=== PATIENT | female | born 1985 ===

== ENCOUNTER 2017-02-20 11:22 | Emergency (ER) | payer MEDICAID, OTHER ==
--- NOTE | 2017-02-20 11:54 | C.PDOC ---
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 - Scribe Statement The provider has reviewed the documentation as recorded by the Scribe Jocy Walton All medical record entries made by the Scribe were at my direction and personally dictated by me. I have reviewed the chart and agree that the record accurately reflects my personal performance of the history, physical exam, medical decision making, and the department course for this patient. I have also personally directed, reviewed, and agree with the discharge instructions and disposition.
--- NOTE | 2017-02-20 11:55 | C.PDOC ---
History Of Present Illness 31 year old patient presents to the ED complaining of RLQ pain on and off for the past week. Patient also complains of vomiting. She notes her last menstrual cycle was a few days ago. The abdominal pain is radiating from her back. The pain is exacerbated by walking. Patient denies being , any PMHx, allergies, fever, shortness of breath, dysuria, incontinence, numbness, weakness , vomiting, or diarrhea. PMD: Dr. Lam Time Seen by Provider: 02/20/17 11:49 Chief Complaint (Nursing): Abdominal Pain History Per: Patient History/Exam Limitations: no limitations Onset/Duration Of Symptoms: Intermittent Episodes (1 week) Current Symptoms Are (Timing): Still Present Context: Other Severity: Mild Pain Scale Rating Of: 3 Location Of Pain/Discomfort: RLQ Radiation Of Pain To:: Back Quality Of Discomfort: "Pain" Associated Symptoms: Nausea, Back Pain Exacerbating Factors: None Alleviating Factors: None Last Bowel Movement: Today Recent travel outside of the [place]: No Abnormal Vaginal Bleeding: No Last Menstral Period: few days ago Past Medical History Reviewed: Historical Data, Nursing Documentation, Vital Signs Vital Signs: Last Vital Signs Temp 98.1 F 02/20/17 14:42 Pulse 82 02/20/17 14:42 Resp 20 02/20/17 14:42 BP 111/71 02/20/17 14:42 Pulse Ox 95 02/20/17 14:42 - [facility] Procedures MONITORING NOS (09/16/13) INFLUENZA VACCINATION (10/09/13) MANUAL ASSIST DELIV NEC (10/09/13) REPAIR OB LACERATION NEC (10/09/13) Family History: States: Diabetes - Social History Hx Tobacco Use: No Hx Alcohol Use: No Hx Substance Use: No - Immunization History Hx Tetanus Toxoid Vaccination: No Hx Influenza Vaccination: No Hx Pneumococcal Vaccination: No Review Of Systems Except As Marked, All Systems Reviewed And Found Negative. Constitutional: Negative for: Fever Respiratory: Negative for: Shortness of Breath Gastrointestinal: Positive for: Nausea, Abdominal Pain. Negative for: Vomiting , Diarrhea Genitourinary: Negative for: Dysuria, Incontinence Musculoskeletal: Positive for: Back Pain Neurological: Negative for: Weakness, Numbness Physical Exam - Physical Exam Appears: Non-toxic, No Acute Distress Skin: Warm, Dry Head: Atraumatic, Normacephalic Neck: Normal ROM, Supple Chest: Symmetrical Cardiovascular: Rhythm Regular Respiratory: Normal Breath Sounds, No Rales, No Rhonchi, No Wheezing Gastrointestinal/Abdominal: Soft, Tenderness (RLQ tenderness), No Guarding, No Rebound Back: Normal Inspection, No CVA Tenderness Extremity: Normal ROM Neurological/Psych: Oriented x3 Gait: Steady ED Course And Treatment - Laboratory Results Result Diagrams: 02/20/17 12:20 02/20/17 12:20 Lab Interpretation: Normal Urine POC: Negative O2 Sat by Pulse Oximetry: 100 (room air) Pulse Ox Interpretation: Normal - CT Scan/US Abdomen/Pelvis CT Other Rad Studies (CT/US): Read By Radiologist (Pavan Abebe), Radiology Report Reviewed CT/US Interpretation: PROCEDURE: CT Abdomen and Pelvis without intravenous contrast. HISTORY: Pain. COMPARISON: Comparison is made to the previous study dated 07/01/2014. TECHNIQUE: Axial and reformatted coronal and sagittal CT images of the abdomen and pelvis were obtained without IV or oral contrast administration.. Contrast Dose: 0. Radiation dose: Total exam DLP = 429.7 mGy -cm. This CT exam was performed using one or more of the following dose reduction techniques: Automated exposure control, adjustment of the mA and/or kV according to patient size, and/or use of iterative reconstruction technique. FINDINGS: LOWER THORAX: Unremarkable. LIVER: Hepatomegaly with findings again suggestive of moderate hepatic steatosis. GALLBLADDER AND BILE DUCTS: No CT evidence of cholecystitis. PANCREAS: Unremarkable. No gross lesion or ductal dilatation. SPLEEN: Unremarkable. ADRENALS: Unremarkable. No mass. KIDNEYS AND URETERS: Unremarkable. No hydronephrosis. No solid mass. VASCULATURE: Unremarkable. No aortic aneurysm. BOWEL: Unremarkable. No obstruction. No gross mural thickening. APPENDIX: Unremarkable. Normal appendix. PERITONEUM: Unremarkable. No free fluid. No free air. LYMPH NODES: Unremarkable. No enlarged lymph nodes. BLADDER: Unremarkable. REPRODUCTIVE : The uterus is slightly enlarged. BONES: No acute fracture. OTHER FINDINGS : None. IMPRESSION: No CT evidence of acute pathology in the abdomen and pelvis. Mild hepatomegaly with moderate hepatic steatosis again noted. No evidence of cholecystitis pancreatitis or appendicitis. Slightly enlarged uterus. Progress Note: Plan: Abdomen/Pelvis CT w/o contrast, Labs, IV fluids, Zofran. On re-evaluation abdomen soft non-tender Reassessment Condition: Improved Disposition Counseled Patient/Family Regarding: Studies Performed, Diagnosis, Need For Followup, Rx Given - Disposition Referrals: [facility] [Outside] [facility] [Outside] Disposition: HOME/ ROUTINE Disposition Time: 14:10 Condition: STABLE Additional Instructions: Follow up at clinic or PMD for further evaluation Prescriptions: Naproxen [Naprosyn] 1 tab PO BID PRN #25 tab PRN Reason: Pain Instructions: Abdominal Pain (ED) - POA Present On Arrival: None - Clinical Impression Clinical Impression: Nausea, Abdominal pain - 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 - Scribe Statement The provider has reviewed the documentation as recorded by the Scribe Jocy Walton All medical record entries made by the Scribe were at my direction and personally dictated by me. I have reviewed the chart and agree that the record accurately reflects my personal performance of the history, physical exam, medical decision making, and the department course for this patient. I have also personally directed, reviewed, and agree with the discharge instructions and disposition.
[2017-02-20] MEDS ORDERED: Sodium Chloride 0.9% 1,000 ML IV ONE (12:02)
[2017-02-20] MEDS ORDERED: Sodium Chloride 0.9% 1,000 ML ONE (12:25)
[2017-02-20 12:29] LABS: BASO # 0.1 K/uL (0.0-0.2); BASO % 0.9 % (0.0-2.0); EOS # 0.2 K/uL (0.0-0.7); EOS % 2.7 % (0.0-4.0); HEMATOCRIT 37.7 % (34.0-47.0); LYMPH # 2.3 K/uL (1.0-4.3); LYMPH % 29.1 % (20.0-40.0); MEAN CELL VOLUME 82.2 fL (81.0-99.0); MEAN CORPUSCULAR HEMOGLOBIN 26.9 pg (27.0-31.0); MEAN CORPUSCULAR HGB CONC 32.7 g/dL (33.0-37.0); MEAN PLATELET VOLUME 9.3 fL (7.2-11.7); MONO # 0.4 K/uL (0.0-0.8); MONO % 4.9 % (0.0-10.0); RED CELL DISTRIBUTION WIDTH 13.7 % (11.5-14.5)
[2017-02-20 12:30] LABS: WHITE BLOOD COUNT 7.9 K/uL (4.8-10.8)
[2017-02-20 12:55] LABS: RBC URINE 2 /hpf (0-3); WBC URINE 10 /hpf (0-5)
[2017-02-20 13:04] LABS: URINE BILIRUBIN NEGATIVE (NEGATIVE); URINE BLOOD NEGATIVE (NEGATIVE); URINE COLOR Yellow (YELLOW); URINE GLUCOSE (UA) NORMAL (Normal); URINE KETONE NEGATIVE (NEGATIVE); URINE LEUKOCYTE ESTERASE 1+ Leu/uL (Negative); URINE PROTEIN NEGATIVE (NEGATIVE); URINE UROBILINOGEN NORMAL mg/dL (0.2-1.0)
--- NOTE | 2017-02-20 14:01 | CT ---
PROCEDURE: CT Abdomen and Pelvis without intravenous contrast HISTORY: Pain COMPARISON: Comparison is made to the previous study dated 07/01/2014 TECHNIQUE: Axial and reformatted coronal and sagittal CT images of the abdomen and pelvis were obtained without IV or oral contrast administration.. Contrast Dose: 0 Radiation dose: Total exam DLP = 429.7 mGy-cm. This CT exam was performed using one or more of the following dose reduction techniques: Automated exposure control, adjustment of the mA and/or kV according to patient size, and/or use of iterative reconstruction technique. FINDINGS: LOWER THORAX: Unremarkable. LIVER: Hepatomegaly with findings again suggestive of moderate hepatic steatosis. GALLBLADDER AND BILE DUCTS: No CT evidence of cholecystitis PANCREAS: Unremarkable. No gross lesion or ductal dilatation. SPLEEN: Unremarkable. ADRENALS: Unremarkable. No mass. KIDNEYS AND URETERS: Unremarkable. No hydronephrosis. No solid mass. VASCULATURE: Unremarkable. No aortic aneurysm. BOWEL: Unremarkable. No obstruction. No gross mural thickening. APPENDIX: Unremarkable. Normal appendix. PERITONEUM: Unremarkable. No free fluid. No free air. LYMPH NODES: Unremarkable. No enlarged lymph nodes. BLADDER: Unremarkable. REPRODUCTIVE: The uterus is slightly enlarged. BONES: No acute fracture. OTHER FINDINGS: None. IMPRESSION: No CT evidence of acute pathology in the abdomen and pelvis. Mild hepatomegaly with moderate hepatic steatosis again noted. No evidence of cholecystitis pancreatitis or appendicitis. Slightly enlarged uterus.
[2017-02-20 14:18] LABS: CHLORIDE 99 mmol/L (98-107); POTASSIUM 3.9 mmol/L (3.6-5.2); SODIUM 137 mmol/L (132-148)
[2017-02-20 14:20] LABS: ALB/GLOB RATIO 1.3 (1.0-2.1); ALKALINE PHOSPHATASE 54 U/L (38-126); AST/SGOT 57 U/L (14-36); BILIRUBIN,TOTAL 0.5 mg/dL (0.2-1.3); BLOOD UREA NITROGEN 11 mg/dL (7-17); CARBON DIOXIDE 28 mmol/L (22-30); GFR AFRICAN-AMERICAN > 60; TOTAL PROTEIN 7.3 g/dL (6.3-8.3)
[2017-02-20 14:21] LABS: ALT/SGPT 63 U/L (9-52); GLUCOSE,RANDOM 96 mg/dL (65-105)
[2017-02-20 14:43] VITALS: BP 111/71; PULSE 82; RESP 20; TEMP 98.1
[2017-02-20 16:26] VITALS: O2SAT 100
== END 2017-02-20 14:48 | disposition home or self-care (01) ==
LOC: C.ER 11:22
DX: R11.0 Nausea (principal); R10.31 Right lower quadrant pain
CPT/HCPCS: 74176; 80053; 81001; 83690; 84703; 85025; 96361; 96374; 99284; J2405; J7040

== ENCOUNTER 2017-05-21 12:20 | Emergency (ER) | payer MEDICAID ==
[2017-05-21 12:33] VITALS: RESP 18; TEMP 98.8; O2SAT 100
--- NOTE | 2017-05-21 13:29 | C.PDOC ---
History Of Present Illness 32 yo female c/o vaginal bleeding for 2 weeks. Notes her menstruation is usually irregular. Today she is "spotting". (+) pelvic pain. (+) nausea (+) H/o similar symptoms. (-) dysuria (-) urinary frequency (-) back pain (-) fever (-) vomiting (-) dizziness or lightheaded (-) vaginal discharge. PT notes that she has taken mulitple tests which were negative. Time Seen by Provider: 05/21/17 12:59 Chief Complaint (Nursing): Female Genitourinary History Per: Patient History/Exam Limitations: no limitations Onset/Duration Of Symptoms: Days Current Symptoms Are (Timing): Still Present Quality Of Discomfort: "Pain" Associated Symptoms: Nausea. denies: Fever, Chills, Vomiting, Diarrhea, Back Pain Recent travel outside of the [place]: No Abnormal Vaginal Bleeding: Yes Past Medical History Reviewed: Historical Data, Nursing Documentation, Vital Signs Vital Signs: Last Vital Signs Temp 98.8 F 05/21/17 12:28 Pulse 72 05/21/17 15:06 Resp 18 05/21/17 15:06 BP 124/75 05/21/17 15:06 Pulse Ox 100 05/21/17 15:07 - [facility] Procedures MONITORING NOS (09/16/13) INFLUENZA VACCINATION (10/09/13) MANUAL ASSIST DELIV NEC (10/09/13) REPAIR OB LACERATION NEC (10/09/13) Family History: States: Diabetes - Social History Hx Tobacco Use: No Hx Alcohol Use: No Hx Substance Use: No - Immunization History Hx Tetanus Toxoid Vaccination: No Hx Influenza Vaccination: No Hx Pneumococcal Vaccination: No Review Of Systems Except As Marked, All Systems Reviewed And Found Negative. Constitutional: Positive for: Fever Gastrointestinal: Positive for: Nausea Genitourinary: Positive for: Vaginal Bleeding, Pelvic Pain Physical Exam - Physical Exam Appears: Well, Non-toxic, No Acute Distress Skin: Warm, Dry Head: Atraumatic, Normacephalic Eye(s): bilateral: Normal Inspection, EOMI Nose: Normal Oral Mucosa: Moist Neck: Normal ROM, Supple Chest: Symmetrical, No Deformity Cardiovascular: Rhythm Regular Respiratory: Normal Breath Sounds, No Rhonchi, No Wheezing Gastrointestinal/Abdominal: Soft, Tenderness ((+) suprapubic tendenress) Back: No CVA Tenderness, No Vertebral Tenderness Extremity: Bilateral: Atraumatic Neurological/Psych: Oriented x3, Normal Speech, Normal Cognition ED Course And Treatment O2 Sat by Pulse Oximetry: 100 (room air) - CT Scan/US Transvaginal pelvic ultrasound. Other Rad Studies (CT/US): Interpreted By Me, Read By Radiologist, Radiology Report Reviewed CT/US Interpretation: FINDINGS: UTERUS: Measures 8.7 x 4.1 x 4.8 cm. Anteverted. ENDOMETRIUM: Measures 7 mm in diameter. CERVIX: No cervical abnormality identified. RIGHT OVARY: Measures 3.7 x 2.2 x 3.5 cm. Blood flow is demonstrated. 1.8 x 1.5 x 2.0 cm septated cyst. LEFT OVARY: Measures 2.5 x 1.7 x 2.2 cm. Blood flow is demonstrated. FREE FLUID: Small pelvic free fluid. OTHER FINDINGS: None. IMPRESSION: 1.8 cm right ovarian septated cyst. Small pelvic free fluid. Progress Note: Labs and US were ordered. Previous records reviewed, pt has h/o dysmenhorrea. Pt notes similar symptoms. Vitals wNL. No tachycardia. No dizziness or lightheaded. PT notes minimally to no bleeding now. UA WNL. Pt was instructed to follow up with [facility]MI[facility] in 1-2 days. Disposition - Disposition Disposition: HOME/ ROUTINE Disposition Time: 14:47 Condition: STABLE Additional Instructions: Follow up with primary medical doctor in 1-3 days without fail for further evaluation. Take medications as prescribed. Return to the emergency department at any time if symptoms persist or worsen. Prescriptions: Naproxen [Naprosyn] 1 tab PO BID PRN #20 tab PRN Reason: Pain Instructions: Dysmenorrhea (ED) Forms: [employer] (Norwegian) - Clinical Impression Clinical Impression: Menorrhagia with irregular cycle
[2017-05-21 14:03] LABS: RBC URINE 1 /hpf (0-3); URINE BILIRUBIN NEGATIVE (NEGATIVE); URINE BLOOD NEGATIVE (NEGATIVE); URINE COLOR Yellow (YELLOW); URINE GLUCOSE (UA) NORMAL (Normal); URINE KETONE NEGATIVE (NEGATIVE); URINE LEUKOCYTE ESTERASE NEG Leu/uL (Negative); URINE PROTEIN NEGATIVE (NEGATIVE); URINE UROBILINOGEN NORMAL mg/dL (0.2-1.0); WBC URINE 1 /hpf (0-5)
--- NOTE | 2017-05-21 14:30 | US ---
HISTORY: pain COMPARISON: Transvaginal pelvic ultrasound performed 08/11/14. TECHNIQUE: Transvaginal pelvic ultrasound. FINDINGS: UTERUS: Measures 8.7 x 4.1 x 4.8 cm. Anteverted. ENDOMETRIUM: Measures 7 mm in diameter. CERVIX: No cervical abnormality identified. RIGHT OVARY: Measures 3.7 x 2.2 x 3.5 cm. Blood flow is demonstrated. 1.8 x 1.5 x 2.0 cm septated cyst. LEFT OVARY: Measures 2.5 x 1.7 x 2.2 cm. Blood flow is demonstrated. FREE FLUID: Small pelvic free fluid. OTHER FINDINGS: None. IMPRESSION: 1.8 cm right ovarian septated cyst. Small pelvic free fluid.
[2017-05-21 15:07] VITALS: BP 124/75; PULSE 72
== END 2017-05-21 15:07 | disposition home or self-care (01) ==
LOC: C.ER 12:20
DX: N92.0 Excessive and frequent menstruation with regular cycle (principal)

== ENCOUNTER 2018-05-27 13:17 | Emergency (ER) | payer MEDICAID ==
[2018-05-27 13:25] VITALS: O2SAT 100
[2018-05-27] MEDS ORDERED: Sodium Chloride 0.9% 1,000 ML IV ONE (13:55)
[2018-05-27] MEDS ORDERED: Sodium Chloride 0.9% 1,000 ML ONE (14:21)
[2018-05-27 14:22] LABS: BASO # 0.1 K/uL (0.0-0.2); BASO % 0.7 % (0.0-2.0); EOS # 0.3 K/uL (0.0-0.7); EOS % 3.2 % (0.0-4.0); HEMOGLOBIN 12.2 g/dL (11.0-16.0); LYMPH # 2.2 K/uL (1.0-4.3); LYMPH % 24.9 % (20.0-40.0); MEAN CELL VOLUME 80.3 fL (81.0-99.0); MEAN CORPUSCULAR HEMOGLOBIN 27.3 pg (27.0-31.0); MEAN CORPUSCULAR HGB CONC 34.1 g/dL (33.0-37.0); MEAN PLATELET VOLUME 8.9 fL (7.2-11.7); MONO # 0.4 K/uL (0.0-0.8); MONO % 4.8 % (0.0-10.0); NEUT # 5.7 K/uL (1.8-7.0); NEUT % 66.4 % (50.0-75.0); RBC 4.47 Mil/uL (3.80-5.20); WHITE BLOOD COUNT 8.6 K/uL (4.8-10.8)
[2018-05-27 14:28] LABS: HCG,QUALITATIVE URINE POSITIVE (NEGATIVE)
[2018-05-27 14:35] LABS: ALB/GLOB RATIO 1.2 (1.0-2.1); ALBUMIN 4.3 g/dL (3.5-5.0); ALT/SGPT 167 U/L (9-52); AST/SGOT 95 U/L (14-36); BLOOD UREA NITROGEN 8 mg/dL (7-17); CALCIUM 9.8 mg/dl (8.6-10.4); GFR NON-AFRICAN AMERICAN > 60
[2018-05-27 14:44] LABS: SQUAMOUS EPITHIAL 3 /hpf (0-5); URINE BACTERIA RARE (<OCC); URINE BILIRUBIN NEGATIVE (NEGATIVE); URINE BLOOD NEGATIVE (NEGATIVE); URINE CLARITY Clear (Clear); URINE COLOR Yellow (YELLOW); URINE GLUCOSE (UA) NORMAL (Normal); URINE LEUKOCYTE ESTERASE 1+ Leu/uL (Negative); URINE PROTEIN NEGATIVE (NEGATIVE); URINE UROBILINOGEN NORMAL mg/dL (0.2-1.0)
--- NOTE | 2018-05-27 14:45 | C.PDOC ---
History Of Present Illness 33 year old female A2 who is currently 14-16 weeks presents to the emergency department with complaints of have left lower quadrant abdominal cramp over the last two days. Patient states that her back pain radiates to her left lower back. She denies vaginal bleeding, fever, or trauma. Time Seen by Provider: 05/27/18 13:39 Chief Complaint (Nursing): Female Genitourinary History Per: Patient History/Exam Limitations: no limitations Onset/Duration Of Symptoms: Days (2) Current Symptoms Are (Timing): Still Present Location Of Pain/Discomfort: LLQ Quality Of Discomfort: Cramping, "Pain" Associated Symptoms: denies: Fever, Other (vaginal bleeding) Past Medical History Reviewed: Historical Data, Nursing Documentation, Vital Signs Vital Signs: Last Vital Signs Temp 98.0 F 05/27/18 17:01 Pulse 87 05/27/18 17:01 Resp 18 05/27/18 17:01 BP 112/78 05/27/18 17:01 Pulse Ox 100 05/27/18 17:01 - Medical History PMH: Anemia Surgical History: No Surg Hx - [facility] Procedures MONITORING NOS (09/16/13) INFLUENZA VACCINATION (10/09/13) MANUAL ASSIST DELIV NEC (10/09/13) REPAIR OB LACERATION NEC (10/09/13) Family History: States: Diabetes - Social History Hx Tobacco Use: No Hx Alcohol Use: No Hx Substance Use: No - Immunization History Hx Tetanus Toxoid Vaccination: No Hx Influenza Vaccination: No Hx Pneumococcal Vaccination: No Review Of Systems Except As Marked, All Systems Reviewed And Found Negative. Constitutional: Negative for: Fever Gastrointestinal: Positive for: Abdominal Pain (LLQ cramp) Genitourinary: Negative for: Vaginal Bleeding Physical Exam - Physical Exam Appears: Non-toxic, No Acute Distress Skin: Warm, Dry, No Rash Head: Atraumatic, Normacephalic Eye(s): bilateral: Normal Inspection, PERRL, EOMI Oral Mucosa: Moist Neck: Normal, Normal ROM, Supple Chest: Symmetrical, No Tenderness Cardiovascular: Rhythm Regular, No Friction Rub, No Murmur Respiratory: Normal Breath Sounds, No Rales, No Rhonchi, No Wheezing Gastrointestinal/Abdominal: Normal Exam, Soft, No Tenderness, No Guarding, No Rebound Back: Normal Inspection, No CVA Tenderness Extremity: No Swelling Neurological/Psych: Oriented x3, Normal Speech, Normal Cognition, Normal Motor Gait: Steady ED Course And Treatment - Laboratory Results Result Diagrams: 05/27/18 14:18 05/27/18 14:18 O2 Sat by Pulse Oximetry: 100 (RA) Pulse Ox Interpretation: Normal Progress Note: Plan: Blood Bank Type and Screen. Beta-HCG. CMP. CBC. NaCl IV Fluids. Urine Culture. HCG Qualitative. Urinalysis. US 1st Trimester Medical Decision Making Medical Decision Making: On re-exam, the patient reports improvement of symptoms. Lungs are CTA, heart is RRR, abdomen is soft, non-tender and tolerating PO well. Ambulatory in the ED with steady gait. Follow up with the medical doctor within 1-2 days. Return if worsened. Disposition - Disposition Referrals: [facility] [Outside] [facility] [Outside] Disposition: HOME/ ROUTINE Disposition Time: 16:30 Condition: GOOD Additional Instructions: Follow up with your OBGYN tomorrow as scheduled. Return to the ED as soon as possible if worsened such as vaginal bleeding or worsened pain. 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 - Scribe Statement The provider has reviewed the documentation as recorded by the Scribe (Eloy Whitehead) All medical record entries made by the Scribe were at my direction and personally dictated by me. I have reviewed the chart and agree that the record accurately reflects my personal performance of the history, physical exam, medical decision making, and the department course for this patient. I have also personally directed, reviewed, and agree with the discharge instructions and disposition.
--- NOTE | 2018-05-27 15:51 | US ---
Pelvic ultrasound History: . Pain. Comparison: None available. Technique: Real-time sonography was performed through the pelvis utilizing transabdominal technique. Findings: Uterus: 11.8 x 6.3 x 8.2 centimeters. Heterogeneous echotexture. Anteverted. Cervix measures 3.3 centimeters. Intrauterine with intrauterine gestational sac measuring 3.55 centimeters corresponding to a gestational age of 8 weeks and 5 days. Yolk sac measures 2.7 millimeters. [place]-rump length measures 2.1 centimeters corresponding to a gestational age of 8 weeks 5 days. heart rate of 154 beats per minute. No free fluid in the pelvic cul-de-sac. Right ovary: 3.2 x 1.5 x 3.4 centimeters. Normal flow. Left ovary: 2.9 x 2.6 x 3.3 centimeters. Normal flow. Impression: Intrauterine corresponding to a gestational age of approximately 8 weeks and 5 days by crown-rump length of 2.07 centimeters. heart rate of 154 beats per minute. Limited 1st trimester ultrasound for viability purposes only. Continued interval followup with serial ultrasound, serial HCG levels, and gynecological consultation would be helpful if clinically indicated.
[2018-05-27 17:02] VITALS: BP 112/78; PULSE 87; RESP 18; TEMP 98
== END 2018-05-27 17:03 | disposition home or self-care (01) ==
LOC: C.ER 13:17
DX: O26.891 Other specified pregnancy related conditions, first trimester (principal); R10.32 Left lower quadrant pain; Z3A.08 8 weeks gestation of pregnancy
CPT/HCPCS: 76801; 80053; 81001; 84702; 84703; 85025; 86850; 86900; 99284; J7030

== ENCOUNTER 2018-08-27 09:55 | Emergency (ER) | payer MEDICAID ==
[2018-08-27 11:49] LABS: SQUAMOUS EPITHIAL 10 /hpf (0-5); URINE AMORPHOUS SEDIMENT RARE /ul (<OCC); URINE BACTERIA OCC (<OCC); URINE BILIRUBIN NEGATIVE (NEGATIVE); URINE BLOOD NEGATIVE (NEGATIVE); URINE CLARITY Hazy (Clear); URINE COLOR Amber (YELLOW); URINE GLUCOSE (UA) NORMAL (Normal); URINE LEUKOCYTE ESTERASE 3+ Leu/uL (Negative); URINE PROTEIN 1+ mg/dL (NEGATIVE); URINE UROBILINOGEN NORMAL mg/dL (0.2-1.0)
--- NOTE | 2018-08-27 14:25 | US ---
Indication: , scant care Comparison: 1st trimester ultrasound performed 05/27/18 Technique: Real-time ultrasound was performed through the pelvis. Findings: There is a single living fetus in cephalic presentation. Amniotic fluid volume is within normal limits. The placenta is not previa. There are no adnexal masses or cysts evident. Cervix length measures approximately 3.3 cm. The study was performed for emergent evaluation, and the whole anatomic survey of the fetus was not performed. This should be performed on an outpatient elective basis as clinically warranted. On the image provided of the kidneys, there is evidence of a midline rounded echogenic focus with posterior acoustic shadowing noted of unclear significance. Limited visualized anatomy appears otherwise grossly unremarkable. Measurements and calculations: Fetus has a composite sonographic age of 21 weeks 6 days. This calculation is based on the biparietal diameter, head circumference, abdominal circumference, and femur length. Estimated heart rate 154.4 beats per min. Estimated weight 457.7 g. Impression: Single living fetus with a composite sonographic age of 21 weeks 6 days. Estimated heart rate 154.4 beats per min. On the image provided of the kidneys, there is evidence of a midline rounded echogenic focus with posterior acoustic shadowing of unclear significance. Additional images were requested however the patient has signed out of the hospital against medical advice. Recommend further sonography and dedicated whole anatomic survey of the fetus for further evaluation. Findings discussed with Doreen on 08/27/18 at 2:21 p.m.
--- NOTE | 2018-08-29 11:35 | OBHP ---
Datetime: 08/27/2018 12:16 IP Adm Impression: , intrauterine ; No Active Labor IP Admit Plan: Observation/Evaluation Admit Comment, IP Provider: Pt is a 33 yo female with no significant PMH , EGA 28.1W who pres ents to the [facility] complaining of non-bilious non bloody vomiting/ diarrhea and nausea for the past 3 d ays. Pt denies any sick contacts, or recent travel. Pt states she tried to take some omeprazole and m eclazine but the nausea and vomting persisted. Pt states she had a fever of 102 last night. Pt states she is unsure if she has felt movements, no vaginal leakage of fluids, no contractions an no v aginal bleeding. She notes she has had some brown spotting in her urine. Pt denies any other uriary s ymtoms. 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 Home meds: denies Allergies: fruits "can't breath", shrimp "can't breath" PNC rash Assessement Plan - zofran - BPP - US - UA - continue to monitor Pt seen, examined, assessment, and plan discused with Dr Nikunj Bullock PGY1, Internal Medicine Resident Pelvic Type - PN: Adequate Extremities - PN: Normal Abdomen - PN: Normal Back - PN: Normal Breast - PN: Not Done Lungs - PN: Normal Heart - PN: Normal Thyroid - PN: Normal Neurologic - PN: Normal HEENT - PN: Normal General - PN: Normal FHR - Baseline A Provider: 150 Membranes, Provider: Intact Contraction Comments Provider: None Gestation - Est Wks by US: 28.1 Pool Provider: Negative EGA AdmitDate IP: 19.4 Vital Signs Provider: Reviewed; Within Normal Limits IP Chief Complaint: Maternal discomfort Dilatation, Provider: o Effacement, Provider: 0 Station, Provider: -3 Genitourinary Exam: Normal DTRs - PN: Not Done
[2018-08-29 15:34] VITALS: BP 103/63; PULSE 79
== END 2018-08-27 13:41 | disposition home or self-care (01) ==
LOC: C.EROB 09:55
DX: O21.2 Late vomiting of pregnancy (principal); Z3A.28 28 weeks gestation of pregnancy

== ENCOUNTER 2018-10-08 09:56 | Observation (INO) | payer MEDICAID ==
[2018-10-08] MEDS ORDERED: Lactated Ringer's 1,000 ML IV ONE (11:15)
[2018-10-08 11:43] LABS: SQUAMOUS EPITHIAL 19 /hpf (0-5); URINE BACTERIA MANY (<OCC); URINE BILIRUBIN NEGATIVE (NEGATIVE); URINE BLOOD NEGATIVE (NEGATIVE); URINE CLARITY Hazy (Clear); URINE COLOR Yellow (YELLOW); URINE GLUCOSE (UA) NORMAL (Normal); URINE LEUKOCYTE ESTERASE 3+ Leu/uL (Negative); URINE PROTEIN NEGATIVE (NEGATIVE); URINE UROBILINOGEN NORMAL mg/dL (0.2-1.0)
[2018-10-08 12:07] LABS: BASO % 0.5 % (0.0-2.0); EOS # 0.1 K/uL (0.0-0.7); EOS % 1.7 % (0.0-4.0); LYMPH # 1.6 K/uL (1.0-4.3); LYMPH % 18.4 % (20.0-40.0); MEAN CORPUSCULAR HEMOGLOBIN 25.4 pg (27.0-31.0); MEAN PLATELET VOLUME 8.6 fL (7.2-11.7); MONO # 0.4 K/uL (0.0-0.8); MONO % 4.4 % (0.0-10.0); NEUT # 6.4 K/uL (1.8-7.0); RBC 3.52 Mil/uL (3.80-5.20); RED CELL DISTRIBUTION WIDTH 14.4 % (11.5-14.5); WHITE BLOOD COUNT 8.6 K/uL (4.8-10.8)
[2018-10-08 12:08] LABS: HEMOGLOBIN 8.9 g/dL (11.0-16.0); MEAN CELL VOLUME 76.9 fL (81.0-99.0)
[2018-10-08 12:19] LABS: ALB/GLOB RATIO 1.2 (1.0-2.1); ALBUMIN 3.7 g/dL (3.5-5.0); ALT/SGPT 120 U/L (9-52); AMYLASE 52 U/L (30-110); AST/SGOT 120 U/L (14-36); BLOOD UREA NITROGEN 6 mg/dL (7-17); CALCIUM 8.9 mg/dl (8.6-10.4); GAMMA GLUTAMYL TRANSPEPTIDASE 63 U/L (8-78); GFR NON-AFRICAN AMERICAN > 60; LIPASE 47 U/L (23-300)
[2018-10-08 12:20] LABS: INR 1.1; PROTHROMBIN TIME 12.5 SECONDS (9.7-12.2)
[2018-10-08 12:49] LABS: HEPATITIS B SURFACE AG Negative (NEGATIVE)
[2018-10-08 13:15] LABS: HEPATITIS A IGM NEGATIVE (NEGATIVE); HEPATITIS B CORE AB NEGATIVE (NEGATIVE)
[2018-10-08 13:27] LABS: HEPATITIS C ANTIBODY NEGATIVE (NEGATIVE)
[2018-10-08 18:52] LABS: IRON 37 ug/dL (37-170)
--- NOTE | 2018-10-08 19:00 | US ---
HISTORY: elevated LFTs, COMPARISON: CT abdomen and pelvis without contrast performed 02/20/17 TECHNIQUE: Sonographic evaluation of the abdomen. FINDINGS: LIVER: Measures 23.0 cm in sagittal dimension. Echogenic liver may be seen in setting of hepatic parenchymal disease or fatty infiltration. The main portal vein appears patent with normal directional flow. No intrahepatic bile duct dilatation. GALLBLADDER: No gallstones. No gallbladder wall thickening. Negative sonographic Banerjee's sign as assessed by the fender repairer. COMMON BILE DUCT: Measures 4 mm. PANCREAS: Not well visualized. RIGHT KIDNEY: Measures 11.7 x 4.5 x 5.2 cm. No obstructing calculus or hydronephrosis identified. LEFT KIDNEY: Measures 10.2 x 5.0 x 5.1 cm. No obstructing calculus or hydronephrosis identified. SPLEEN: Measures approximately 12.1 cm. 4 mm and 6 mm calcifications, possibly granulomas. AORTA: Limited views appear unremarkable. IVC: Limited views appear unremarkable. OTHER FINDINGS: None. IMPRESSION: Hepatomegaly. Echogenic liver may be seen in setting of hepatic parenchymal disease or fatty infiltration. Splenic calcifications, likely granulomas.
[2018-10-08 19:02] LABS: % IRON SATURATION 8 (20-55); TOTAL IRON BINDING CAPACITY 471 ug/dL (250-450)
[2018-10-08] MEDS ORDERED: Ciprofloxacin 400mg/200ml D5W 400 MG/200 ML BAG IVPB SCH ×2 (20:45→21:00)
--- NOTE | 2018-10-08 21:00 | CP.PCM.HP ---
History of Present Illness - History of Present Illness History of Present Illness: pt 29 weeke admited from ed fo acute vomiting and diarhea Present on Admission - Present on Admission Any Indicators Present on Admission: No Review of Systems - Review of Systems Systems not reviewed;Unavailable: Acuity of Condition - Constitutional Constitutional: Fatigue - EENT Eyes: As Per HPI Ears: As Per HPI Nose/Mouth/Throat: As Per HPI - Breasts Breasts: As Per HPI - Cardiovascular Cardiovascular: As Per HPI - Respiratory Respiratory: As Per HPI - Gastrointestinal Gastrointestinal: Diarrhea, Vomiting - Genitourinary Genitourinary: As Per HPI - Reproductive: Female Reproductive:Female: As Per HPI - Menstruation Additional comments: - Musculoskeletal Musculoskeletal: As Per HPI - Integumentary Integumentary: As Per HPI - Neurological Neurological: As Per HPI - Psychiatric Psychiatric: As Per HPI - Endocrine Endocrine: As Per HPI - Hematologic/Lymphatic Hematologic: As Per HPI Past Patient History - Infectious Disease Hx of Infectious Diseases: None - Past Social History Smoking Status: Never Smoked - HEMATOLOGICAL/ONCOLOGICAL Hx Anemia: Yes - PSYCHIATRIC Hx Substance Use: No - SURGICAL HISTORY Hx Surgeries: No - ANESTHESIA Hx Anesthesia: No Meds Allergies/Adverse Reactions: Allergies Allergy/AdvReac Type Severity Reaction Status Date / Time Penicillins Allergy SHORTNESS Verified 10/08/18 11:00 OF BREATH shrimp, cinnamon, and oranges Allergy ITCHING Uncoded 05/27/18 13:25 Physical Exam - Constitutional Appears: Non-toxic - Head Exam Head Exam: ATRAUMATIC - Eye Exam Eye Exam: Normal appearance Pupil Exam: NORMAL ACCOMODATION - ENT Exam ENT Exam: Mucous Membranes Moist - Neck Exam Neck exam: Positive for: Normal Inspection - Respiratory Exam Respiratory Exam: Clear to Auscultation Bilateral - Cardiovascular Exam Cardiovascular Exam: REGULAR RHYTHM - GI/Abdominal Exam GI & Abdominal Exam: Normal Bowel Sounds Additional comments: abdomen big for - Rectal Exam Rectal Exam: NORMAL INSPECTION - Extremities Exam Extremities exam: Positive for: normal inspection - Back Exam Back exam: NORMAL INSPECTION - Neurological Exam Neurological exam: Alert, Oriented x3, Reflexes Normal - Psychiatric Exam Psychiatric exam: Normal Affect, Normal Mood - Skin Skin Exam: Normal Color Results - Labs Result Diagrams: 10/08/18 12:01 10/08/18 12:01 Labs: Laboratory Results - last 24 hr 10/08/18 10/08/18 10/08/18 11:22 11:22 12:01 WBC RBC Hgb Hct MCV MCH MCHC RDW Plt Count MPV Neut % (Auto) Lymph % (Auto) [place] % (Auto) Eos % (Auto) Baso % (Auto) Neut # (Auto) Lymph # (Auto) [place] # (Auto) Eos # (Auto) Baso # (Auto) PT INR APTT Fibrinogen Sodium 136 Potassium 3.8 Chloride 104 Carbon Dioxide 20 L Anion Gap 15 BUN 6 L Creatinine 0.4 L Est GFR ( Amer) > 60 Est GFR (Non-Af Amer) > 60 Random Glucose 75 Uric Acid Calcium 8.9 Iron TIBC % Saturation Ferritin Total Bilirubin 0.3 GGT 63 AST 120 H D ALT 120 H D Alkaline Phosphatase 80 Lactate Dehydrogenase 517 Total Protein 6.8 Albumin 3.7 Globulin 3.2 Albumin/Globulin Ratio 1.2 Amylase 52 Lipase 47 Urine Color Yellow Urine Clarity Hazy Urine pH 7.0 Ur Specific [place] 1.012 Urine Protein Negative Urine Glucose (UA) Normal Urine Ketones Negative Urine Blood Negative Urine Nitrate Negative Urine Bilirubin Negative Urine Urobilinogen Normal Ur Leukocyte Esterase 3+ H Urine WBC (Auto) 5 Urine RBC (Auto) 2 Ur Squamous Epith Cells 19 H Urine Bacteria Many H U Random Total Protein Ur Random Uric Acid 54.1 Hepatitis A IgM Ab Hep Bs Antigen Hep B Core IgM Ab Hepatitis C Antibody 10/08/18 10/08/18 10/08/18 12:01 12:01 12:01 WBC 8.6 RBC 3.52 L Hgb 8.9 L D Hct 27.1 L MCV 76.9 L D MCH 25.4 L MCHC 33.0 RDW 14.4 Plt Count 277 MPV 8.6 Neut % (Auto) 75.0 Lymph % (Auto) 18.4 L [place] % (Auto) 4.4 Eos % (Auto) 1.7 Baso % (Auto) 0.5 Neut # (Auto) 6.4 Lymph # (Auto) 1.6 [place] # (Auto) 0.4 Eos # (Auto) 0.1 Baso # (Auto) 0.0 PT 12.5 H INR 1.1 APTT 31 Fibrinogen 507 H Sodium Potassium Chloride Carbon Dioxide Anion Gap BUN Creatinine Est GFR ( Amer) Est GFR (Non-Af Amer) Random Glucose Uric Acid Calcium Iron TIBC % Saturation Ferritin Total Bilirubin GGT AST ALT Alkaline Phosphatase Lactate Dehydrogenase Total Protein Albumin Globulin Albumin/Globulin Ratio Amylase Lipase Urine Color Urine Clarity Urine pH Ur Specific [place] Urine Protein Urine Glucose (UA) Urine Ketones Urine Blood Urine Nitrate Urine Bilirubin Urine Urobilinogen Ur Leukocyte Esterase Urine WBC (Auto) Urine RBC (Auto) Ur Squamous Epith Cells Urine Bacteria U Random Total Protein Ur Random Uric Acid Hepatitis A IgM Ab Negative Hep Bs Antigen Negative Hep B Core IgM Ab Negative Hepatitis C Antibody Negative 10/08/18 10/08/18 10/08/18 12:07 18:34 18:34 WBC RBC Hgb Hct MCV MCH MCHC RDW Plt Count MPV Neut % (Auto) Lymph % (Auto) [place] % (Auto) Eos % (Auto) Baso % (Auto) Neut # (Auto) Lymph # (Auto) [place] # (Auto) Eos # (Auto) Baso # (Auto) PT INR APTT Fibrinogen Sodium Potassium Chloride Carbon Dioxide Anion Gap BUN Creatinine Est GFR ( Amer) Est GFR (Non-Af Amer) Random Glucose Uric Acid Calcium Iron 37 TIBC 471 H % Saturation 8 L Ferritin 46.9 Total Bilirubin GGT AST ALT Alkaline Phosphatase Lactate Dehydrogenase Total Protein Albumin Globulin Albumin/Globulin Ratio Amylase Lipase Urine Color Urine Clarity Urine pH Ur Specific [place] Urine Protein Urine Glucose (UA) Urine Ketones Urine Blood Urine Nitrate Urine Bilirubin Urine Urobilinogen Ur Leukocyte Esterase Urine WBC (Auto) Urine RBC (Auto) Ur Squamous Epith Cells Urine Bacteria U Random Total Protein 10.0 Ur Random Uric Acid Hepatitis A IgM Ab Hep Bs Antigen Hep B Core IgM Ab Hepatitis C Antibody 10/08/18 18:35 WBC RBC Hgb Hct MCV MCH MCHC RDW Plt Count MPV Neut % (Auto) Lymph % (Auto) [place] % (Auto) Eos % (Auto) Baso % (Auto) Neut # (Auto) Lymph # (Auto) [place] # (Auto) Eos # (Auto) Baso # (Auto) PT INR APTT Fibrinogen Sodium Potassium Chloride Carbon Dioxide Anion Gap BUN Creatinine Est GFR ( Amer) Est GFR (Non-Af Amer) Random Glucose Uric Acid 5.8 Calcium Iron TIBC % Saturation Ferritin Total Bilirubin GGT AST ALT Alkaline Phosphatase Lactate Dehydrogenase Total Protein Albumin Globulin Albumin/Globulin Ratio Amylase Lipase Urine Color Urine Clarity Urine pH Ur Specific [place] Urine Protein Urine Glucose (UA) Urine Ketones Urine Blood Urine Nitrate Urine Bilirubin Urine Urobilinogen Ur Leukocyte Esterase Urine WBC (Auto) Urine RBC (Auto) Ur Squamous Epith Cells Urine Bacteria U Random Total Protein Ur Random Uric Acid Hepatitis A IgM Ab Hep Bs Antigen Hep B Core IgM Ab Hepatitis C Antibody Assessment & Plan - Assessment and Plan (Free Text) Assessment: ac gastroenteritis improving uti Plan: as per orders - Date & Time Date: 10/08/18 Time: 21:03
--- NOTE | 2018-10-09 01:14 | OBHP ---
Datetime: 10/08/2018 12:57 IP Adm Impression: Term, intrauterine IP Admit Plan: Observation/Evaluation Admit Comment, IP Provider: Patient is a 33 year old via x4, with an BRANDT of 01/02/19 by first trimester ultrasound. Patient does not recall her LMP. Patient presents with nausea, diarrhea, and vomiting x1 day. Per Patient she consumed a meat stew with cow intestines, and shortly after she began experiencing abdominal pain, non-bloody diarrhea, and began vomiting. Patient has not been abl e to tolerate PO. Her last episode of vomitus was this morning (2-3x). Patient also admits to dysuria x1 week and pink spotting for x1 day. Patient endorses movement, and otherwise denies vaginal bleeding. Patient also complains of intermittent contractions x1 month. PMH: Transaminitis, hepatosteatosis, Asthma Surgeries: denies Meds: vitamin, iron supplement Allergies: Penicillin, shrimp, orange, cinnamon Objective: please see above Assessment/Plan: Patient is a 33 year old via x4, with an BRANDT of 01/02/19 by first trimester ultrasoun d. 1. Nausea, Vomiting, Diarrhea 2. Hepatosteatosis, rule-out fatty liver disease 3. History of Asthma NST reactive, Patient monitored Labs obtained: fibrinogen, CBC, CMP, Uric acid, Urine protein, Urinalysis, stool sample ova/parasi te, c-diff toxin, PTT, PT Medications: zofran, LR bolus Consult: medicine consulted (Dr. Rogelio Rasheed; recommendations appreciated) Pelvic Type - PN: Adequate Extremities - PN: Normal Abdomen - PN: Normal Back - PN: Normal Breast - PN: Not Done Lungs - PN: Normal Heart - PN: Normal Thyroid - PN: Normal Neurologic - PN: Normal HEENT - PN: Normal General - PN: Normal FHR - Baseline A Provider: 140 Gestation - Est Wks by US: 27.5 IP Hx Assessment: The History has been Reviewed and is Current EGA AdmitDate IP: 27.5 Vital Signs Provider: Reviewed; Within Normal Limits IP Chief Complaint: Maternal discomfort; evaluation NICHD Variability Prov Fetus A: Moderate 6-25bpm NICHD Accel Fetus A IP Provider: 10X10 FHR Category Provider Fetus A: Category I NICHD Decel Fetus A IP Provider: None Genitourinary Exam: Normal DTRs - PN: Normal
[2018-10-09 05:03] LABS: BASO % 0.5 % (0.0-2.0); EOS # 0.2 K/uL (0.0-0.7); EOS % 3.2 % (0.0-4.0); HEMOGLOBIN 8.6 g/dL (11.0-16.0); LYMPH % 28.4 % (20.0-40.0); MEAN CELL VOLUME 76.8 fL (81.0-99.0); MEAN CORPUSCULAR HEMOGLOBIN 24.9 pg (27.0-31.0); MEAN CORPUSCULAR HGB CONC 32.4 g/dL (33.0-37.0); MEAN PLATELET VOLUME 8.6 fL (7.2-11.7); MONO # 0.4 K/uL (0.0-0.8); MONO % 5.3 % (0.0-10.0); NEUT # 4.4 K/uL (1.8-7.0); NEUT % 62.6 % (50.0-75.0); RBC 3.46 Mil/uL (3.80-5.20); RED CELL DISTRIBUTION WIDTH 14.6 % (11.5-14.5)
[2018-10-09 05:32] LABS: ALB/GLOB RATIO 1.2 (1.0-2.1); ALBUMIN 3.4 g/dL (3.5-5.0); ALT/SGPT 126 U/L (9-52); AST/SGOT 107 U/L (14-36); BLOOD UREA NITROGEN 6 mg/dL (7-17); CALCIUM 8.9 mg/dl (8.6-10.4); GFR NON-AFRICAN AMERICAN > 60
--- NOTE | 2018-10-09 08:18 | CP.PCM.CON ---
<Bowen Fuller - Last Filed: 10/09/18 10:32> History of Present Illness - History of Present Illness History of Present Illness: GI Fellow PGY4, consult note. Miguel Almazan is a very pleasant 33F presenting with vomiting, diarrhea and found to have elevated liver tests. Patient is currently on her 6th and reportedly doing well previously. Prior to symptoms she was eating cow intestines. No one else has been sick. Her vomiting and diarrhea has improved since being in the hospital. She is tolerating full liquid diet now. We were consulted for elevated liver tests. In the chart history, she has had elevated ALT/AST since 2013. Patient reports she has just heard of this in the last several months. She was told her numbers were 270 at one point. Today they are 120. Previous CT imaging since 2013 shows fatty liver. Patient denies previous liver problems, gallstones, alcohol use, hepatitis, no family history of liver disease. She was supposed to have liver evaluation as an outpatient, but unable to make appointment. She has not been hypertensive, and no significant abdominal pain except for refractory acid reflux, currently on low dose omeprazole. She does report frequent nose bleeds recently and a history of iron deficiency anemia. PMHx - as above PSHx - Multiple pregnancies FmHx - unremarkable SocHx - Denies alcohol, smoking 12pt ROS completed and negative except for above. Past Patient History - Infectious Disease Hx of Infectious Diseases: None - Past Social History Smoking Status: Never Smoked - HEMATOLOGICAL/ONCOLOGICAL Hx Anemia: Yes - PSYCHIATRIC Hx Substance Use: No - SURGICAL HISTORY Hx Surgeries: No - ANESTHESIA Hx Anesthesia: No Meds Allergies/Adverse Reactions: Allergies Allergy/AdvReac Type Severity Reaction Status Date / Time Penicillins Allergy SHORTNESS Verified 10/08/18 11:00 OF BREATH shrimp, cinnamon, and oranges Allergy ITCHING Uncoded 05/27/18 13:25 - Medications Medications: Current Medications Ciprofloxacin (Cipro 400mg/200ml Dsw) 400 mg in 200 mls @ 133 mls/hr IVPB DAILY ANA; Protocol Pantoprazole Sodium (Protonix Ec Tab) 40 mg PO DAILY ANA Physical Exam - Constitutional Appears: Well, Non-toxic - Head Exam Head Exam: ATRAUMATIC, NORMAL INSPECTION - Eye Exam Eye Exam: EOMI, Normal appearance - ENT Exam ENT Exam: Mucous Membranes Moist, Normal Exam - Respiratory Exam Respiratory Exam: Clear to Auscultation Bilateral, NORMAL BREATHING PATTERN - Cardiovascular Exam Cardiovascular Exam: REGULAR RHYTHM, +S1, +S2 - GI/Abdominal Exam GI & Abdominal Exam: Normal Bowel Sounds. absent: Organomegaly, Tenderness Additional comments: , normal for 27 weeks. - Extremities Exam Extremities exam: Positive for: normal inspection. Negative for: calf tenderness - Neurological Exam Neurological exam: Alert, CN II-XII Intact, Oriented x3 - Psychiatric Exam Psychiatric exam: Normal Affect, Normal Mood - Skin Skin Exam: Normal Color, Warm Results - Labs Result Diagrams: 10/09/18 04:50 10/09/18 04:50 Labs: Laboratory Results - last 24 hr 10/08/18 10/08/18 10/08/18 11:22 11:22 12:01 WBC RBC Hgb Hct MCV MCH MCHC RDW Plt Count MPV Neut % (Auto) Lymph % (Auto) [place] % (Auto) Eos % (Auto) Baso % (Auto) Neut # (Auto) Lymph # (Auto) [place] # (Auto) Eos # (Auto) Baso # (Auto) PT INR APTT Fibrinogen Sodium 136 Potassium 3.8 Chloride 104 Carbon Dioxide 20 L Anion Gap 15 BUN 6 L Creatinine 0.4 L Est GFR ( Amer) > 60 Est GFR (Non-Af Amer) > 60 Random Glucose 75 Uric Acid Calcium 8.9 Phosphorus Magnesium Iron TIBC % Saturation Ferritin Total Bilirubin 0.3 GGT 63 AST 120 H D ALT 120 H D Alkaline Phosphatase 80 Lactate Dehydrogenase 517 Total Protein 6.8 Albumin 3.7 Globulin 3.2 Albumin/Globulin Ratio 1.2 Amylase 52 Lipase 47 Urine Color Yellow Urine Clarity Hazy Urine pH 7.0 Ur Specific [place] 1.012 Urine Protein Negative Urine Glucose (UA) Normal Urine Ketones Negative Urine Blood Negative Urine Nitrate Negative Urine Bilirubin Negative Urine Urobilinogen Normal Ur Leukocyte Esterase 3+ H Urine WBC (Auto) 5 Urine RBC (Auto) 2 Ur Squamous Epith Cells 19 H Urine Bacteria Many H U Random Total Protein Ur Random Uric Acid 54.1 Hepatitis A IgM Ab Hep Bs Antigen Hep B Core IgM Ab Hepatitis C Antibody 10/08/18 10/08/18 10/08/18 12:01 12:01 12:01 WBC 8.6 RBC 3.52 L Hgb 8.9 L D Hct 27.1 L MCV 76.9 L D MCH 25.4 L MCHC 33.0 RDW 14.4 Plt Count 277 MPV 8.6 Neut % (Auto) 75.0 Lymph % (Auto) 18.4 L [place] % (Auto) 4.4 Eos % (Auto) 1.7 Baso % (Auto) 0.5 Neut # (Auto) 6.4 Lymph # (Auto) 1.6 [place] # (Auto) 0.4 Eos # (Auto) 0.1 Baso # (Auto) 0.0 PT 12.5 H INR 1.1 APTT 31 Fibrinogen 507 H Sodium Potassium Chloride Carbon Dioxide Anion Gap BUN Creatinine Est GFR ( Amer) Est GFR (Non-Af Amer) Random Glucose Uric Acid Calcium Phosphorus Magnesium Iron TIBC % Saturation Ferritin Total Bilirubin GGT AST ALT Alkaline Phosphatase Lactate Dehydrogenase Total Protein Albumin Globulin Albumin/Globulin Ratio Amylase Lipase Urine Color Urine Clarity Urine pH Ur Specific [place] Urine Protein Urine Glucose (UA) Urine Ketones Urine Blood Urine Nitrate Urine Bilirubin Urine Urobilinogen Ur Leukocyte Esterase Urine WBC (Auto) Urine RBC (Auto) Ur Squamous Epith Cells Urine Bacteria U Random Total Protein Ur Random Uric Acid Hepatitis A IgM Ab Negative Hep Bs Antigen Negative Hep B Core IgM Ab Negative Hepatitis C Antibody Negative 10/08/18 10/08/18 10/08/18 12:07 18:34 18:34 WBC RBC Hgb Hct MCV MCH MCHC RDW Plt Count MPV Neut % (Auto) Lymph % (Auto) [place] % (Auto) Eos % (Auto) Baso % (Auto) Neut # (Auto) Lymph # (Auto) [place] # (Auto) Eos # (Auto) Baso # (Auto) PT INR APTT Fibrinogen Sodium Potassium Chloride Carbon Dioxide Anion Gap BUN Creatinine Est GFR ( Amer) Est GFR (Non-Af Amer) Random Glucose Uric Acid Calcium Phosphorus Magnesium Iron 37 TIBC 471 H % Saturation 8 L Ferritin 46.9 Total Bilirubin GGT AST ALT Alkaline Phosphatase Lactate Dehydrogenase Total Protein Albumin Globulin Albumin/Globulin Ratio Amylase Lipase Urine Color Urine Clarity Urine pH Ur Specific [place] Urine Protein Urine Glucose (UA) Urine Ketones Urine Blood Urine Nitrate Urine Bilirubin Urine Urobilinogen Ur Leukocyte Esterase Urine WBC (Auto) Urine RBC (Auto) Ur Squamous Epith Cells Urine Bacteria U Random Total Protein 10.0 Ur Random Uric Acid Hepatitis A IgM Ab Hep Bs Antigen Hep B Core IgM Ab Hepatitis C Antibody 10/08/18 10/09/18 10/09/18 18:35 04:50 04:50 WBC 7.0 RBC 3.46 L Hgb 8.6 L Hct 26.6 L MCV 76.8 L MCH 24.9 L MCHC 32.4 L RDW 14.6 H Plt Count 263 MPV 8.6 Neut % (Auto) 62.6 Lymph % (Auto) 28.4 [place] % (Auto) 5.3 Eos % (Auto) 3.2 Baso % (Auto) 0.5 Neut # (Auto) 4.4 Lymph # (Auto) 2.0 [place] # (Auto) 0.4 Eos # (Auto) 0.2 Baso # (Auto) 0.0 PT INR APTT Fibrinogen Sodium 135 Potassium 3.8 Chloride 105 Carbon Dioxide 23 Anion Gap 12 BUN 6 L Creatinine 0.5 L Est GFR ( Amer) > 60 Est GFR (Non-Af Amer) > 60 Random Glucose 95 D Uric Acid 5.8 Calcium 8.9 Phosphorus Magnesium Iron TIBC % Saturation Ferritin Total Bilirubin 0.2 GGT AST 107 H ALT 126 H Alkaline Phosphatase 74 Lactate Dehydrogenase Total Protein 6.3 Albumin 3.4 L Globulin 2.9 Albumin/Globulin Ratio 1.2 Amylase Lipase Urine Color Urine Clarity Urine pH Ur Specific [place] Urine Protein Urine Glucose (UA) Urine Ketones Urine Blood Urine Nitrate Urine Bilirubin Urine Urobilinogen Ur Leukocyte Esterase Urine WBC (Auto) Urine RBC (Auto) Ur Squamous Epith Cells Urine Bacteria U Random Total Protein Ur Random Uric Acid Hepatitis A IgM Ab Hep Bs Antigen Hep B Core IgM Ab Hepatitis C Antibody 10/09/18 04:50 WBC RBC Hgb Hct MCV MCH MCHC RDW Plt Count MPV Neut % (Auto) Lymph % (Auto) [place] % (Auto) Eos % (Auto) Baso % (Auto) Neut # (Auto) Lymph # (Auto) [place] # (Auto) Eos # (Auto) Baso # (Auto) PT INR APTT Fibrinogen Sodium Potassium Chloride Carbon Dioxide Anion Gap BUN Creatinine Est GFR ( Amer) Est GFR (Non-Af Amer) Random Glucose Uric Acid Calcium Phosphorus 5.4 H Magnesium 1.6 Iron TIBC % Saturation Ferritin Total Bilirubin GGT AST ALT Alkaline Phosphatase Lactate Dehydrogenase Total Protein Albumin Globulin Albumin/Globulin Ratio Amylase Lipase Urine Color Urine Clarity Urine pH Ur Specific [place] Urine Protein Urine Glucose (UA) Urine Ketones Urine Blood Urine Nitrate Urine Bilirubin Urine Urobilinogen Ur Leukocyte Esterase Urine WBC (Auto) Urine RBC (Auto) Ur Squamous Epith Cells Urine Bacteria U Random Total Protein Ur Random Uric Acid Hepatitis A IgM Ab Hep Bs Antigen Hep B Core IgM Ab Hepatitis C Antibody Assessment & Plan - Assessment and Plan (Free Text) Assessment: #Elevated liver tests, likely NAFLD #GERD #Vomiting #, 27 weeks #Iron deficiency anemia PLAN: -U/S reviewed: No gallstones, fatty liver, liver 23cm, portal vein patent, no ductal dilations -Given the chronic nature of elevated liver tests and previous CT imaging, this is likely related to NAFLD -We considered hepatitis including E, autoimmune work-up, wilsons. PENDING results. -Doubt preeclampsia, HELLP, AFLP and this is NOT a cholestatic pattern i.e gallstones, IHCP. -GERD is uncontrolled and likely exacerbated by . Start pantoprazole 40mg. Category B. -OK to advance diet to soft, low fat, low fiber, soft diet. -Should discuss iron supplementation with primary doctor -Zofran is safe in case discussed with Dr. Coon, see attestation - Date & Time Date: 10/09/18 Time: 08:31 <Jeffry Coon Y - Last Filed: 10/09/18 11:26> Meds - Medications Medications: Current Medications Ciprofloxacin (Cipro 400mg/200ml Dsw) 400 mg in 200 mls @ 133 mls/hr IVPB DAILY ANA; Protocol Pantoprazole Sodium (Protonix Ec Tab) 40 mg PO DAILY ANA Results - Labs Result Diagrams: 10/09/18 04:50 10/09/18 04:50 Labs: Laboratory Results - last 24 hr 10/08/18 10/08/18 10/08/18 11:22 11:22 12:01 WBC RBC Hgb Hct MCV MCH MCHC RDW Plt Count MPV Neut % (Auto) Lymph % (Auto) [place] % (Auto) Eos % (Auto) Baso % (Auto) Neut # (Auto) Lymph # (Auto) [place] # (Auto) Eos # (Auto) Baso # (Auto) PT INR APTT Fibrinogen Sodium 136 Potassium 3.8 Chloride 104 Carbon Dioxide 20 L Anion Gap 15 BUN 6 L Creatinine 0.4 L Est GFR ( Amer) > 60 Est GFR (Non-Af Amer) > 60 Random Glucose 75 Uric Acid Calcium 8.9 Phosphorus Magnesium Iron TIBC % Saturation Ferritin Total Bilirubin 0.3 GGT 63 AST 120 H D ALT 120 H D Alkaline Phosphatase 80 Lactate Dehydrogenase 517 Total Protein 6.8 Albumin 3.7 Globulin 3.2 Albumin/Globulin Ratio 1.2 Amylase 52 Lipase 47 Urine Color Yellow Urine Clarity Hazy Urine pH 7.0 Ur Specific [place] 1.012 Urine Protein Negative Urine Glucose (UA) Normal Urine Ketones Negative Urine Blood Negative Urine Nitrate Negative Urine Bilirubin Negative Urine Urobilinogen Normal Ur Leukocyte Esterase 3+ H Urine WBC (Auto) 5 Urine RBC (Auto) 2 Ur Squamous Epith Cells 19 H Urine Bacteria Many H U Random Total Protein Ur Random Uric Acid 54.1 Hepatitis A IgM Ab Hep Bs Antigen Hep B Core IgM Ab Hepatitis C Antibody 10/08/18 10/08/18 10/08/18 12:01 12:01 12:01 WBC 8.6 RBC 3.52 L Hgb 8.9 L D Hct 27.1 L MCV 76.9 L D MCH 25.4 L MCHC 33.0 RDW 14.4 Plt Count 277 MPV 8.6 Neut % (Auto) 75.0 Lymph % (Auto) 18.4 L [place] % (Auto) 4.4 Eos % (Auto) 1.7 Baso % (Auto) 0.5 Neut # (Auto) 6.4 Lymph # (Auto) 1.6 [place] # (Auto) 0.4 Eos # (Auto) 0.1 Baso # (Auto) 0.0 PT 12.5 H INR 1.1 APTT 31 Fibrinogen 507 H Sodium Potassium Chloride Carbon Dioxide Anion Gap BUN Creatinine Est GFR ( Amer) Est GFR (Non-Af Amer) Random Glucose Uric Acid Calcium Phosphorus Magnesium Iron TIBC % Saturation Ferritin Total Bilirubin GGT AST ALT Alkaline Phosphatase Lactate Dehydrogenase Total Protein Albumin Globulin Albumin/Globulin Ratio Amylase Lipase Urine Color Urine Clarity Urine pH Ur Specific [place] Urine Protein Urine Glucose (UA) Urine Ketones Urine Blood Urine Nitrate Urine Bilirubin Urine Urobilinogen Ur Leukocyte Esterase Urine WBC (Auto) Urine RBC (Auto) Ur Squamous Epith Cells Urine Bacteria U Random Total Protein Ur Random Uric Acid Hepatitis A IgM Ab Negative Hep Bs Antigen Negative Hep B Core IgM Ab Negative Hepatitis C Antibody Negative 10/08/18 10/08/18 10/08/18 12:07 18:34 18:34 WBC RBC Hgb Hct MCV MCH MCHC RDW Plt Count MPV Neut % (Auto) Lymph % (Auto) [place] % (Auto) Eos % (Auto) Baso % (Auto) Neut # (Auto) Lymph # (Auto) [place] # (Auto) Eos # (Auto) Baso # (Auto) PT INR APTT Fibrinogen Sodium Potassium Chloride Carbon Dioxide Anion Gap BUN Creatinine Est GFR ( Amer) Est GFR (Non-Af Amer) Random Glucose Uric Acid Calcium Phosphorus Magnesium Iron 37 TIBC 471 H % Saturation 8 L Ferritin 46.9 Total Bilirubin GGT AST ALT Alkaline Phosphatase Lactate Dehydrogenase Total Protein Albumin Globulin Albumin/Globulin Ratio Amylase Lipase Urine Color Urine Clarity Urine pH Ur Specific [place] Urine Protein Urine Glucose (UA) Urine Ketones Urine Blood Urine Nitrate Urine Bilirubin Urine Urobilinogen Ur Leukocyte Esterase Urine WBC (Auto) Urine RBC (Auto) Ur Squamous Epith Cells Urine Bacteria U Random Total Protein 10.0 Ur Random Uric Acid Hepatitis A IgM Ab Hep Bs Antigen Hep B Core IgM Ab Hepatitis C Antibody 10/08/18 10/09/18 10/09/18 18:35 04:50 04:50 WBC 7.0 RBC 3.46 L Hgb 8.6 L Hct 26.6 L MCV 76.8 L MCH 24.9 L MCHC 32.4 L RDW 14.6 H Plt Count 263 MPV 8.6 Neut % (Auto) 62.6 Lymph % (Auto) 28.4 [place] % (Auto) 5.3 Eos % (Auto) 3.2 Baso % (Auto) 0.5 Neut # (Auto) 4.4 Lymph # (Auto) 2.0 [place] # (Auto) 0.4 Eos # (Auto) 0.2 Baso # (Auto) 0.0 PT INR APTT Fibrinogen Sodium 135 Potassium 3.8 Chloride 105 Carbon Dioxide 23 Anion Gap 12 BUN 6 L Creatinine 0.5 L Est GFR ( Amer) > 60 Est GFR (Non-Af Amer) > 60 Random Glucose 95 D Uric Acid 5.8 Calcium 8.9 Phosphorus Magnesium Iron TIBC % Saturation Ferritin Total Bilirubin 0.2 GGT AST 107 H ALT 126 H Alkaline Phosphatase 74 Lactate Dehydrogenase Total Protein 6.3 Albumin 3.4 L Globulin 2.9 Albumin/Globulin Ratio 1.2 Amylase Lipase Urine Color Urine Clarity Urine pH Ur Specific [place] Urine Protein Urine Glucose (UA) Urine Ketones Urine Blood Urine Nitrate Urine Bilirubin Urine Urobilinogen Ur Leukocyte Esterase Urine WBC (Auto) Urine RBC (Auto) Ur Squamous Epith Cells Urine Bacteria U Random Total Protein Ur Random Uric Acid Hepatitis A IgM Ab Hep Bs Antigen Hep B Core IgM Ab Hepatitis C Antibody 10/09/18 04:50 WBC RBC Hgb Hct MCV MCH MCHC RDW Plt Count MPV Neut % (Auto) Lymph % (Auto) [place] % (Auto) Eos % (Auto) Baso % (Auto) Neut # (Auto) Lymph # (Auto) [place] # (Auto) Eos # (Auto) Baso # (Auto) PT INR APTT Fibrinogen Sodium Potassium Chloride Carbon Dioxide Anion Gap BUN Creatinine Est GFR ( Amer) Est GFR (Non-Af Amer) Random Glucose Uric Acid Calcium Phosphorus 5.4 H Magnesium 1.6 Iron TIBC % Saturation Ferritin Total Bilirubin GGT AST ALT Alkaline Phosphatase Lactate Dehydrogenase Total Protein Albumin Globulin Albumin/Globulin Ratio Amylase Lipase Urine Color Urine Clarity Urine pH Ur Specific [place] Urine Protein Urine Glucose (UA) Urine Ketones Urine Blood Urine Nitrate Urine Bilirubin Urine Urobilinogen Ur Leukocyte Esterase Urine WBC (Auto) Urine RBC (Auto) Ur Squamous Epith Cells Urine Bacteria U Random Total Protein Ur Random Uric Acid Hepatitis A IgM Ab Hep Bs Antigen Hep B Core IgM Ab Hepatitis C Antibody Attending/Attestation - Attestation I have personally seen and examined this patient.: Yes I have fully participated in the care of the patient.: Yes I have reviewed all pertinent clinical information: Yes Notes (Text): 10/09/18 11:19 I have seen and examined patient with GI fellow. Agree with above documentation with the following additions. In brief, this is a 33 year old female currently 27 weeks , who presents to hospital with complaint of sudden onset nausea, vomiting, diarrhea which began 2 days ago following consumption of cow intestine. She reports mild epigastric discomfort and previously reported nausea, vomiting, diarrhea have now resolved. She denies fever/chills, weight loss, sick contacts, recent travel, or antibiotic use. On arrival to hospital, she was also noted to have transaminitis. She denies prior history of liver disease, jaundice, pruritis, or ETOH consumption. She also endorses sharp substernal burning sensation, currently maintained on low dose PPI therapy. She otherwise claims her has been uneventful thus far. No prior endoscopic evaluation. state, 27 weeks Nausea, vomiting, diarrhea - resolved, likely secondary to gastroenteritis Transaminitis - hepatocellular pattern, normal bilirubin/alkaline phosphatase - Advance diet slowly as tolerated - Anti-emetic therapy PRN - May continue with PPI therapy, category B therefore safe for use though would prefer use of H2 kathia therapy PRN - Abdominal US reviewed by me showing normal caliber CBD, fatty liver - Continue to monitor LFTs - Obtain viral hepatitis panel including D/E, autoimmune panel - Patient would benefit from additional outpatient GI follow up after delivery
[2018-10-09] MEDS ORDERED: Pantoprazole 40 mg EC Tab PO SCH (10:00)
--- NOTE | 2018-10-09 12:14 | OBPN ---
Datetime: 10/09/2018 12:10 IP Progress Impression Other: Fatty liver FHR - Baseline A Provider: 140 IP Progress Note Comment: Pt doing well. Tolerating diet. Seen by GI, cleared for discharge. Pt was given guevara to f/u with MFM. Importance of F/U discussed. Will await for lunch and if tolerating DC home. Vital Signs Provider: Reviewed; Within Normal Limits NICHD Accel Fetus A IP Provider: [id number] FHR Category Provider Fetus A: Category I NICHD Variability Prov Fetus A: Moderate 6-25bpm NICHD Decel Fetus A IP Provider: None Datetime: 10/08/2018 16:50 IP Progress Plan: Discharge Datetime: 10/08/2018 12:57 Gestation - Est Wks by US: 27.5 Datetime: 08/27/2018 12:16 Pool Provider: Negative Membranes, Provider: Intact Contraction Comments Provider: None Dilatation, Provider: o Effacement, Provider: 0 Station, Provider: -3
[2018-10-09 19:05] VITALS: BP 105/70; PULSE 84; RESP 20; TEMP 97.8
[2018-10-09] MEDS ORDERED: Ciprofloxacin 400mg/200ml D5W 400 MG/200 ML BAG IVPB SCH (22:00)
[2018-10-10 08:31] LABS: CERULOPLASMIN 45 mg/dL (18-53)
== END 2018-10-09 13:31 | disposition home or self-care (01) ==
LOC: C.EROB 09:56 → C.4D 16:40
PROVIDERS: ADMIT Obstetrics & Gynecology; ATTEND Obstetrics & Gynecology
DX: O99.613 Diseases of the digestive system complicating pregnancy, third trimester (principal); Z3A.27 27 weeks gestation of pregnancy; O23.43 Unspecified infection of urinary tract in pregnancy, third trimester; D50.9 Iron deficiency anemia, unspecified; J45.909 Unspecified asthma, uncomplicated; K21.9 Gastro-esophageal reflux disease without esophagitis; K52.9 Noninfective gastroenteritis and colitis, unspecified; K76.0 Fatty (change of) liver, not elsewhere classified; O26.613 Liver and biliary tract disorders in pregnancy, third trimester; O99.013 Anemia complicating pregnancy, third trimester; O99.513 Diseases of the respiratory system complicating pregnancy, third trimester
CPT/HCPCS: 76700; 80053; 80074; 81001; 82150; 82390; 82728; 82784; 82787; 82977; 83540; 83550; 83615; 83690; 83735; 84100; 84156; 84550; 84560; 85025; 85384; 85610; 85730; 86039; 86255; 87045; 87086; 87177; 87209; 87230; 96360; 96374; G0378; J0744; J2405; J7120

== ENCOUNTER 2018-11-22 13:24 | Emergency (ER) | payer MEDICAID ==
[2018-11-22 14:04] VITALS: BMI 31.4
[2018-11-22] MEDS ORDERED: Lactated Ringer's 1,000 ML IV ONE (14:04)
[2018-11-22] MEDS ORDERED: Magnesium Hydroxide Susp 30 ml UD PO ONE (14:05)
[2018-11-22] MEDS ORDERED: Aluminum Hydroxide/Magnesium Hydroxide Susp (30 mL) PO ONE (14:07)
[2018-11-22 14:50] LABS: BASO % 0.3 % (0.0-2.0); EOS # 0.1 K/uL (0.0-0.7); EOS % 1.2 % (0.0-4.0); LYMPH # 1.7 K/uL (1.0-4.3); LYMPH % 15.1 % (20.0-40.0); MEAN CORPUSCULAR HEMOGLOBIN 23.1 pg (27.0-31.0); MEAN CORPUSCULAR HGB CONC 31.8 g/dL (33.0-37.0); MEAN PLATELET VOLUME 8.7 fL (7.2-11.7); MONO # 0.4 K/uL (0.0-0.8); MONO % 3.9 % (0.0-10.0); NEUT # 9.2 K/uL (1.8-7.0); NEUT % 79.5 % (50.0-75.0); RBC 3.89 Mil/uL (3.80-5.20); RED CELL DISTRIBUTION WIDTH 16.6 % (11.5-14.5)
[2018-11-22 14:52] LABS: MEAN CELL VOLUME 72.5 fL (81.0-99.0); WHITE BLOOD COUNT 11.6 K/uL (4.8-10.8)
[2018-11-22 14:57] LABS: SQUAMOUS EPITHIAL 3 /hpf (0-5); URINE BACTERIA FEW (<OCC); URINE BILIRUBIN NEGATIVE (NEGATIVE); URINE BLOOD NEGATIVE (NEGATIVE); URINE CLARITY Hazy (Clear); URINE COLOR Yellow (YELLOW); URINE GLUCOSE (UA) NORMAL (Normal); URINE LEUKOCYTE ESTERASE 1+ Leu/uL (Negative); URINE PROTEIN NEGATIVE (NEGATIVE); URINE UROBILINOGEN NORMAL mg/dL (0.2-1.0)
[2018-11-22 15:03] LABS: INR 1.2; PROTHROMBIN TIME 12.6 SECONDS (9.7-12.2)
[2018-11-22 15:11] LABS: ALB/GLOB RATIO 1.1 (1.0-2.1); ALBUMIN 3.9 g/dL (3.5-5.0); ALT/SGPT 86 U/L (9-52); AST/SGOT 86 U/L (14-36); BLOOD UREA NITROGEN 7 mg/dL (7-17); CALCIUM 9.2 mg/dl (8.6-10.4); GFR NON-AFRICAN AMERICAN > 60; URIC ACID 4.5 mg/dL (2.2-7.5)
--- NOTE | 2018-11-22 17:37 | OBHP ---
Datetime: 11/22/2018 14:46 IP Adm Impression: , intrauterine IP Admit Plan: Observation/Evaluation Admit Comment, IP Provider: A/P: 33yo at 35.1wks BRANDT: 12/26/18, LMP: unk presents with compla ints of vomiting x 5 episodes (non-bilious) and heart burn. Pt states she has been vomiting for the p ast 3-4 weeks and was seen in triage 09/2018 with the same complaint at which time she was seen by GI. Abdominal US revealed hepatomegaly with fatty infiltrate to be followed up . She has had e levated liver enzymes since 2013. PT today denies ESPITIA/blurry vision but has RUQ tenderness to palpatio n and also complains of flank pain. 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 (+) herpes - for valtrex suppression PMH: anemia ALL: PCN MEDS: ferrous sulfate; omeprazole, methylprednisone (recent respiratory illness); PNV SHX: denies A/P: 33yo F- Nausea/Heartburn 1) Maalox x 1 dose given/Pepcid x 1 dose - heartburn resolved 2) elevated liver enzymes - s/p GI consultation- follow up as outpatient/continue PPI - Abdominal US reviewed 10/09/18 3) Repeat PIH labs ALT/AST trending down plts WNL PC ratio 0.2 - no s/s PEC 4) s/p IVF- back pain resolved, SVE unchanged - labor precautions given 5) F/u in clinic in 1 week Pelvic Type - PN: Adequate Extremities - PN: Normal Abdomen - PN: Abnormal General - PN: Normal FHR - Baseline A Provider: 140 Contraction Comments Provider: occ contractions Comments, ACOG Physical Exam: Abd: (+) tenderness in RUQ EGA AdmitDate IP: 35.1 Vital Signs Provider: Reviewed; Within Normal Limits IP Chief Complaint: Other NICHD Variability Prov Fetus A: Moderate 6-25bpm NICHD Accel Fetus A IP Provider: [id number] FHR Category Provider Fetus A: Category I Dilatation, Provider: FT Effacement, Provider: 20 Station, Provider: -3 DTRs - PN: Normal Datetime: 10/09/2018 12:10 NICHD Decel Fetus A IP Provider: None
[2018-11-22 21:27] VITALS: BP 115/66; PULSE 75; RESP 15; TEMP 98.6; O2SAT 98
--- NOTE | 2018-11-23 17:53 | OBADHP ---
Datetime: 11/22/2018 14:46 Admit Comment, IP Provider: A/P: 33yo at 35.1wks BRANDT: 12/26/18, LMP: unk presents with compla ints of vomiting x 5 episodes (non-bilious) and heart burn. Pt states she has been vomiting for the p ast 3-4 weeks and was seen in triage 09/2018 with the same complaint at which time she was seen by GI. Abdominal US revealed hepatomegaly with fatty infiltrate to be followed up . She has had e levated liver enzymes since 2013. PT today denies ESPITIA/blurry vision but has RUQ tenderness to palpatio n and also complains of flank pain. 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 (+) herpes - for valtrex suppression PMH: anemia ALL: PCN MEDS: ferrous sulfate; omeprazole, methylprednisone (recent respiratory illness); PNV SHX: denies A/P: 33yo F- Nausea/Heartburn 1) Maalox x 1 dose given/Pepcid x 1 dose - heartburn resolved 2) elevated liver enzymes - s/p GI consultation- follow up as outpatient/continue PPI - Abdominal US reviewed 10/09/18 3) Repeat PIH labs ALT/AST trending down plts WNL PC ratio 0.2 - no s/s PEC 4) s/p IVF- back pain resolved, SVE unchanged - labor precautions given 5) F/u in clinic in 1 week Pelvic Type - PN: Adequate Extremities - PN: Normal Abdomen - PN: Abnormal General - PN: Normal FHR - Baseline A Provider: 140 Contraction Comments Provider: occ contractions Comments, ACOG Physical Exam: Abd: (+) tenderness in RUQ Vital Signs Provider: Reviewed; Within Normal Limits IP Chief Complaint: Other NICHD Variability Prov Fetus A: Moderate 6-25bpm NICHD Accel Fetus A IP Provider: [id number] FHR Category Provider Fetus A: Category I Dilatation, Provider: FT Effacement, Provider: 20 Station, Provider: -3 DTRs - PN: Normal EGA AdmitDate IP: 35.1 IP Adm Impression: , intrauterine IP Admit Plan: Observation/Evaluation Datetime: 10/09/2018 12:10 NICHD Decel Fetus A IP Provider: None Datetime: 10/08/2018 12:57 Back - PN: Normal Breast - PN: Not Done Lungs - PN: Normal Heart - PN: Normal Thyroid - PN: Normal Neurologic - PN: Normal HEENT - PN: Normal Gestation - Est Wks by US: 27.5 IP Hx Assessment: The History has been Reviewed and is Current Genitourinary Exam: Normal Datetime: 08/27/2018 12:16 Membranes, Provider: Intact Pool Provider: Negative
== END 2018-11-22 17:25 | disposition home or self-care (01) ==
LOC: C.EROB 13:24
DX: O21.2 Late vomiting of pregnancy (principal); Z3A.35 35 weeks gestation of pregnancy
CPT/HCPCS: 80053; 81001; 82570; 83615; 84156; 84550; 85025; 85384; 85610; 85730; 96374; 99283; J7120